=== PATIENT | male | born 1955 | race Caucasian/White ===

== ENCOUNTER 2019-08-28 05:34 | Day surgery (SDC) | payer OTHER ==
[2019-08-27 10:19] VITALS: BMI 32.9
--- NOTE | 2019-08-27 22:39 | HP ---
HISTORY OF PRESENT ILLNESS: Mr. Gould is a very pleasant gentleman who since May has been experiencing right leg pain but over the past four weeks in particular, this has progressed where he has quite debilitating degree of pain. This has also caused difficulty walking and difficulty sleeping at night. He has treated this with medications and four epidural steroid injections, which only provided him with limited relief. He brings an MRI scan on disk that reveals L3-L4 disk herniation off the right side with inferior migration that likely is the reason he is having these pains. He hopes to discuss potential surgical intervention. PAST MEDICAL HISTORY: Significant for no major medical problems. PAST SURGICAL HISTORY: No surgeries listed. MEDICATIONS: Only medications: 1. Ondansetron. 2. Gabapentin. ALLERGIES: NO KNOWN DRUG ALLERGIES. PHYSICAL EXAMINATION: GENERAL: The patient is alert and oriented x3. NEUROLOGIC: Gait is severely antalgic. EXTREMITIES: Lower extremity motor exam is normal though limited by pain on the right. He has a positive right femoral stretch test. ASSESSMENT: Lumbar disk herniation and radiculopathy. PLAN: Dr. Arrington met with the patient, reviewed imaging, and advocated for right L3-L4 decompression and possible diskectomy. He explained to the patient the risks, benefits, and alternatives to the procedure. The patient expressed understanding and elected to move forward with surgery as discussed. I do believe the patient is mentally competent and capable of making medical decisions for himself. We will move forward with surgery as planned. Job ID: [id number]
[2019-08-28] MEDS ORDERED: Levofloxacin 500 mg/D5W 100 ml Premix Bag ONE (05:55)
[2019-08-28] MEDS ORDERED: Clindamycin/D5W 900 mg/50 ml Premix Bag ONE (05:55)
[2019-08-28] MEDS ORDERED: Thrombin 5000 UNITS/5 ML VIAL ONE (06:12)
[2019-08-28] MEDS ORDERED: EPINEPHrine 1 MG/ML AMP ONE (06:12)
[2019-08-28] MEDS ORDERED: Bupivacaine PF 0.5% 30 ML VIAL ONE (06:12)
[2019-08-28] MEDS ORDERED: Fentanyl 100 MCG/2 ML VIAL ONE ×4 (06:21→08:45)
[2019-08-28] MEDS ORDERED: Meperidine HCl/PF 25 MG/ML VIAL ONE (08:36)
[2019-08-28] MEDS ORDERED: Tamsulosin HCl 0.4 MG CAP ONE (09:01)
--- NOTE | 2019-08-28 10:40 | OP ---
DATE OF PROCEDURE: 08/28/2019 NEWSPAPER EDITOR MANAGING: Arias Lopez PA-C INDICATION: Pain. DIAGNOSIS: Lumbar radiculopathy. PROCEDURE PERFORMED: Right L3-L4 diskectomy. ANESTHESIA: General. DESCRIPTION OF PROCEDURE: The patient was brought into the operating room and placed under general anesthesia. He was flipped from the supine to prone position on the operating room table. A linear incision was planned over the L3-L4 segment. After prepping and draping and after an appropriate preoperative pause, the incision was created. The soft tissues were swept right of midline. A self-retaining retractor was placed in the wound for optimal exposure. After confirming the appropriate level with C-arm fluoroscopy, high-speed cutting drill bit was used to perform a laminectomy along the inferior aspect of L3 and the superior aspect of L4. The laminectomy was extended laterally to encompass the medial aspect of the facet joint. The descending L4 nerve root was identified and mobilized medially, where a small inferiorly-migrated disk fragment was identified and removed. After decompressing the segment, the wound was irrigated. Hemostasis was maintained throughout. The wound was then closed in anatomic layers and a pressure dressing was applied. There were no known procedural complications. Job ID: [id number]
[2019-08-28] MEDS ORDERED: PROPOFOL 200 MG/20 ML VIAL ONE (11:06)
[2019-08-28] MEDS ORDERED: Glycopyrrolate 0.2 MG/ML 5 ML SYRINGE ONE (11:06)
[2019-08-28] MEDS ORDERED: Rocuronium Bromide 10 MG/ML (10ML VIAL) ONE (11:06)
[2019-08-28] MEDS ORDERED: Ondansetron PF 4 MG/2 ML Vial ONE (11:06)
[2019-08-28] MEDS ORDERED: Ketorolac Tromethamine 30 MG/ML VIAL ONE (11:06)
[2019-08-28] MEDS ORDERED: Dexamethasone 20 MG/5 ML VIAL ONE (11:06)
[2019-08-28] MEDS ORDERED: Lidocaine 1% PF 5 ML VIAL ONE (11:06)
[2019-08-28] MEDS ORDERED: HYDROcodone/Acetaminophen 5/325 mg Tablet ONE (12:02)
== END 2019-08-28 12:15 | disposition home or self-care (01) ==
LOC: SDC 05:34
PROVIDERS: ATTEND Neurological Surgery
PROC: 0ST20ZZ Resection of Lumbar Vertebral Disc, Open Approach (ICD-10-PCS; principal; 2019-08-28)
DX: M51.16 Intervertebral disc disorders with radiculopathy, lumbar region (principal); Z79.899 Other long term (current) drug therapy; Z87.891 Personal history of nicotine dependence; Z88.0 Allergy status to penicillin
CPT/HCPCS: 76000; J0171; J1100; J1885; J1956; J2001; J2175; J2405; J2704; J3010; J3490; S0020